=== PATIENT | male | born 1955 | race Caucasian/White ===

== ENCOUNTER → 2023-06-02 10:13 | Outpatient (CLI) | payer MEDICARE, OTHER, SELFPAY ==
--- NOTE | 2023-06-02 10:17 | DI.RAD.S_ITS ---
PROCEDURE: XR LUMBAR SPINE MIN 4V INDICATIONS: BACK PAIN TECHNIQUE: 5 views of the lumbar spine were acquired, including bilateral oblique views. COMPARISON: None. FINDINGS: Bones: Bilateral hip arthroplasty. L1 wedge-shaped compression fracture noted, uncertain age. Disc space narrowing hypertrophic facet joints noted in the mid to lower lumbar spine. Oblique images are unremarkable. Soft tissues: Overlying bowel gas pattern is normal. No suspicious soft tissue calcifications. Oblique images: No pars defects. IMPRESSION: L1 compression fracture, uncertain age Approved by: Frank Maldonado M.D. on 06/02/2023 at 10:12
== END ==
PROVIDERS: Referring Provider Physical Medicine & Rehabilitation; Visit Provider Physical Medicine & Rehabilitation
DX: M54.9 Dorsalgia, unspecified (principal); M48.56XA Collapsed vertebra, not elsewhere classified, lumbar region, initial encounter for fracture
CPT/HCPCS: 72110

== ENCOUNTER → 2023-06-18 09:03 | Outpatient (CLI) | payer MEDICARE, OTHER, SELFPAY ==
--- NOTE | 2023-06-18 09:08 | DI.MRI.S_ITS ---
PROCEDURE: MR LUMBAR SPINE WO CON INDICATIONS: progressive axial low back pain TECHNIQUE: Noncontrast sagittal T1 spin echo and T2 fast echo, sagittal STIR, and T2 fast spin echo through the lumbar spine. In cases with scoliosis, additional coronal T2 fast spin echo may be performed. COMPARISON: [facility], CR, XR LUMBAR SPINE MIN 4V, 06/02/2023, 10:25. FINDINGS: Image quality: Excellent. Alignment and Curvature: Grade 1 retrolisthesis of L1 on L2, L2 on L3. Bone Marrow: Marrow is of normal overall signal. No acute vertebral body compression fractures. Chronic compression deformity of the L1 vertebral body, without endplate retropulsion. Spinal Cord: Conus medullaris terminates at the L1-2 level. Visualized cord demonstrates normal signal and size. Paraspinous Soft Tissues: No paravertebral masses. T12-L1: Moderate disc height loss. Broad-based disc bulge. Ligamentum flavum hypertrophy. Mild spinal canal narrowing. Mild neural foraminal narrowing. L1-L2: Moderate disc height loss. Broad-based disc bulge. Ligamentum flavum hypertrophy, epidural lipomatosis and facet hypertrophy causing severe spinal canal narrowing. [id number] bilateral neural foraminal narrowing. L2-L3: Moderate disc height loss. Broad-based disc bulge. Ligamentum flavum hypertrophy, epidural lipomatosis and facet hypertrophy causing severe spinal canal narrowing. Mild right and moderate left neural foraminal narrowing. L3-L4: Broad-based disc bulge, moderate disc height loss, epidural lipomatosis and facet hypertrophy causing severe spinal canal narrowing. Moderate to severe bilateral neural foraminal narrowing. L4-L5: Epidural lipomatosis, ligamentum flavum hypertrophy, facet hypertrophy and broad-based disc bulge causing severe spinal canal narrowing. Severe bilateral neural foraminal narrowing. L5-S1: Broad-based disc bulge, facet hypertrophy and arthrosis causing moderate spinal canal narrowing. Severe bilateral neural foraminal narrowing. IMPRESSION: Multilevel degenerative disc disease, facet arthrosis, ligamentum flavum hypertrophy and epidural lipomatosis, resulting in severe spinal canal narrowing at L1 through L5. Multilevel neural foraminal narrowing, severe at L5-S1 and L4-5. Variable at other levels. Chronic L1 compression deformity. Dictated by: Baldomero Wayne M.D. on 06/18/2023 at 14:33 Approved by: Baldomero Wayne M.D. on 06/18/2023 at 14:40
== END ==
PROVIDERS: PCP Nurse Practitioner Family; Referring Provider Physical Medicine & Rehabilitation; Visit Provider Physical Medicine & Rehabilitation
DX: M47.816 Spondylosis without myelopathy or radiculopathy, lumbar region (principal); M47.817 Spondylosis without myelopathy or radiculopathy, lumbosacral region; M51.36 Other intervertebral disc degeneration, lumbar region; M51.37 Other intervertebral disc degeneration, lumbosacral region; M48.061 Spinal stenosis, lumbar region without neurogenic claudication; M48.07 Spinal stenosis, lumbosacral region; M43.8X6 Other specified deforming dorsopathies, lumbar region
CPT/HCPCS: 72148

== ENCOUNTER 2023-10-16 08:13 | Outpatient (CLI) | payer MEDICARE, OTHER, SELFPAY ==
[2023-10-16] VITALS (8 sets, daily range): BP systolic 123–173; BP diastolic 69–93; PULSE 72–81; RESP 13–20; TEMP 36.1; O2SAT 94–100
--- NOTE | 2023-10-16 08:45 | DI.RAD.S_ITS ---
PROCEDURE: PAIN L/S FACET INJ/BLK 1ST ARY INDICATIONS: FACET ARTHROPATHY COMPARISON: None. FINDINGS: Fluoroscopic spot filming was performed to verify placement of spinal needles at the right C4, C5, and C6 level(s), as labeled on the films. Appropriate location(s) of the needle tip(s) was confirmed by injection of iodinated contrast. IMPRESSION: Fluoroscopically guided facet injection of the cervical spine. Dictated by: Janey Dsouza M.D. on 10/16/2023 at 11:22 Approved by: Janey Dsouza M.D. on 10/16/2023 at 11:23
[2023-10-16] MEDS: MIDAZOLAM 2 MG/2 ML VIAL IV (09:34)
[2023-10-16] MEDS: BUPIVACAINE 0.5% (PF) 10 ML VIAL 5 ML INJ (09:38)
[2023-10-16] MEDS: LIDOCAINE 1% 20 ML 5 ML INJ (09:38)
[2023-10-16] MEDS: iopamidoL 15 ML VIAL 3 ML INJ (09:38)
--- NOTE | 2023-10-16 09:52 | PM.PROC.IR.1 ---
Date/Time/Diagnoses Date of procedure: 10/16/23 Time of procedure: 09:52 Pre-procedure diagnosis: FACET ARTHROPATHY Post-procedure diagnosis: same Procedure Notes Procedure: 1. BILATERAL L3, L4 AND L5 DIAGNOSTIC MB BLOCKS Indications: Jessica is referred by RAMIREZ Perez for treatment of Bilateral Axial LBP. Physician: Frandy Carlson Total Fluoroscopy time (seconds): 15 Total sedation minutes: 15 Complications: none Procedure in detail & Post-procedure care: DESCRIPTION OF PROCEDURE Fluoroscopically guided, contrast-controlled bilateral L3, L4 AND L5 medial branch blocks with 0.5cc of 0.5% Marcaine. Following review of allergy and review of potential side effects and complications, including, but not necessarily limited to, infection, allergic reaction, local tissue breakdown, nerve injury, paralysis, stroke and possible , the patient indicated that the patient understood and agreed to proceed. An informed consent document was signed by the patient, witnessed by a nurse, and placed in the patient's chart. After review of previous anaesthesic history and IV conscious sedation the patient was deemed safe to proceed with today's procedure with IV conscious sedation as ASA class II designation. Safety time-out was performed to confirm patient ID, procedure to be performed and site of procedure. IV sedation was accomplished with a combination of 2mg of Versed was administered by the RN after DO order, titrated to patient comfort during the course of the procedure while the patient remained responsive to all verbal commands In the prone position, following sterile prep and drape of the lumbar region, the right L3, L4 AND L5 anatomical location of the medial branch of the dorsal ramus was identified fluoroscopically. Subsequently an anesthetic skin wheal using 1% lidocaine solution was initiated at each of the anatomical spots. Subsequently then a 22-gauge 3.5-inch spinal needle was atraumatically introduced and advanced under fluoroscopic guidance at each of the corresponding sites at the right L3, L4 and L5 MB. After negative aspiration, 0.2cc of Isovue 200 was injected, confirming placement without vascular or intrathecal uptake. Subsequently then 0.5cc of 0.5% Marcaine solution was injected at each of the corresponding sites at the right L3, L4 and L5 medial branch locations. The identical procedure was replicated on the left. The patient tolerated the procedure well without signs or symptoms of complications. The patient tolerated the procedure well without signs or symptoms of complications prior to transfer to the recovery area continued monitoring without incident. Post-procedure, the patient was monitored initiating provocative activities to measure the amount of relief from block of the facetogenic pain. The patient reported a VAS of 7 prior to the procedure and a post-procedure VAS of 1. It has been a pleasure to assist in the diagnostic and therapeutic care of your patient. POST OP INSTRUCTIONS The patient was provided with a Pain Log to complete over the next several hours and subsequent days prior to the patient's follow up with the ordering physician. If the patient has wind science and planning relief to the solution applied, then they may be a candidate for medial branch rhizotomy. The patient is aware, was provided, once again, with a Pain Log and will follow up with the referring physician for review and clinical correlation
--- NOTE | 2023-10-16 09:59 | DI.RAD.S_ITS ---
PROCEDURE: XR KNEE LT 3V INDICATIONS: left knee pain s/p TKA TECHNIQUE: 3 views of the knee were acquired. COMPARISON: None. FINDINGS: Bones: Left total knee arthroplasty is intact. No suspicious bony lesions. No acute fracture or dislocation. Soft tissues: No joint effusion. No suspicious soft tissue calcifications. IMPRESSION: No acute bony abnormality or significant effusion. Dictated by: Janey Dsouza M.D. on 10/16/2023 at 12:19 Approved by: Janey Dsouza M.D. on 10/16/2023 at 12:24
== END 2023-10-16 10:12 | disposition home or self-care (01) ==
LOC: RAD 08:14
PROVIDERS: PCP Nurse Practitioner Family; Referring Provider Physical Medicine & Rehabilitation; Visit Provider Physical Medicine & Rehabilitation
DX: M47.816 Spondylosis without myelopathy or radiculopathy, lumbar region (principal); T84.033A Mechanical loosening of internal left knee prosthetic joint, initial encounter
CPT/HCPCS: 64493; 64494; 73562; 99152; J2250

== ENCOUNTER 2023-12-20 09:38 | Outpatient (CLI) | payer MEDICARE, OTHER, SELFPAY ==
[2023-12-20] VITALS (7 sets, daily range): BP systolic 158–198; BP diastolic 89–99; PULSE 75–86; RESP 16–25; TEMP 36.8; O2SAT 95–100
--- NOTE | 2023-12-20 10:15 | DI.RAD.S_ITS ---
PROCEDURE: PAIN L/S FACET INJ/BLK 1ST ARY INDICATIONS: Bilateral L3-L4 and L5 medial branch block SA COMPARISON: [facility], XA, PAIN L/S FACET INJ/BLK 1ST ARY, 10/16/2023, 10:37. FINDINGS: Fluoroscopic spot filming was performed to verify placement of spinal needles at the bilateral L3, L4, L5 level(s), as labeled on the films. Appropriate location(s) of the needle tip(s) was confirmed by injection of iodinated contrast. IMPRESSION: Intraoperative guidance provided. Dictated by: Rayo Patiño M.D. on 12/20/2023 at 12:44 Approved by: Rayo Patiño M.D. on 12/20/2023 at 12:45
[2023-12-20] MEDS: MIDAZOLAM 2 MG/2 ML VIAL IV (10:57)
[2023-12-20] MEDS: LIDOCAINE 1% 20 ML 5 ML INJ (10:59)
[2023-12-20] MEDS: iopamidoL 15 ML VIAL 3 ML INJ (10:59)
[2023-12-20] MEDS: LIDOCAINE 2% INJ SDV 5ML 5 ML INJ ×2 (11:00→11:06)
--- NOTE | 2023-12-20 11:13 | P.PCN_ITS ---
Date/Time/Diagnoses Date of procedure: 12/20/23 Time of procedure: 11:13 Pre-procedure diagnosis: 1. FACET ARTHROPATHY Post-procedure diagnosis: same Procedure Notes Procedure: 1. BILATERAL L3, L4 AND L5 DIAGNOSTIC MB BLOCKS Indications: Jessica is referred by RAMIREZ Perez for treatment of Bilateral Axial LBP. Physician: Frandy Carlson Total Fluoroscopy time (seconds): 9 Total sedation minutes: 10 Complications: none Procedure in detail & Post-procedure care: DESCRIPTION OF PROCEDURE Fluoroscopically guided, contrast-controlled bilateral L3, L4 AND L5 medial branch blocks with 0.5cc of 2% Lidocaine. Following review of allergy and review of potential side effects and complications, including, but not necessarily limited to, infection, allergic reaction, local tissue breakdown, nerve injury, paralysis, stroke and possible , the patient indicated that the patient understood and agreed to proceed. An informed consent document was signed by the patient, witnessed by a nurse, and placed in the patient's chart. After review of previous anaesthesic history and IV conscious sedation the patient was deemed safe to proceed with today's procedure with IV conscious sedation as ASA class II designation. Safety time-out was performed to confirm patient ID, procedure to be performed and site of procedure. IV sedation was accomplished with a combination of 2mg of Versed was administered by the RN after DO order, titrated to patient comfort during the course of the procedure while the patient remained responsive to all verbal commands In the prone position, following sterile prep and drape of the lumbar region, the right L3, L4 AND L5 anatomical location of the medial branch of the dorsal ramus was identified fluoroscopically. Subsequently an anesthetic skin wheal using 1% lidocaine solution was initiated at each of the anatomical spots. Subsequently then a 22-gauge 3.5-inch spinal needle was atraumatically introduced and advanced under fluoroscopic guidance at each of the corresponding sites at the right L3, L4 and L5 MB. After negative aspiration, 0.2cc of Isovue 200 was injected, confirming placement without vascular or intrathecal uptake. Subsequently then 0.5cc of 2% Lidocaine solution was injected at each of the corresponding sites at the right L3, L4 and L5 medial branch locations. The identical procedure was replicated on the left. The patient tolerated the procedure well without signs or symptoms of complications. The patient tolerated the procedure well without signs or symptoms of complications prior to transfer to the recovery area continued monitoring without incident. Post-procedure, the patient was monitored initiating provocative activities to measure the amount of relief from block of the facetogenic pain. The patient reported a VAS of 7 prior to the procedure and a post-procedure VAS of 1. It has been a pleasure to assist in the diagnostic and therapeutic care of your patient. POST OP INSTRUCTIONS The patient was provided with a Pain Log to complete over the next several hours and subsequent days prior to the patient's follow up with the ordering physician. If the patient has brazer induction relief to the solution applied, then they may be a candidate for medial branch rhizotomy. The patient is aware, was provided, once again, with a Pain Log and will follow up with the referring physician for review and clinical correlation
== END 2023-12-20 11:20 | disposition home or self-care (01) ==
PROVIDERS: PCP Nurse Practitioner Family; Referring Provider Physical Medicine & Rehabilitation; Visit Provider Physical Medicine & Rehabilitation
DX: M47.816 Spondylosis without myelopathy or radiculopathy, lumbar region (principal)
CPT/HCPCS: 64493; 64494; 99152; J2250

== ENCOUNTER 2024-02-12 10:20 | Outpatient (CLI) | payer MEDICARE, OTHER, SELFPAY ==
[2024-02-12] VITALS (12 sets, daily range): BP systolic 117–188; BP diastolic 71–88; PULSE 70–83; RESP 16–21; TEMP 36.4; O2SAT 97–100
--- NOTE | 2024-02-12 11:00 | DI.RAD.S_ITS ---
PROCEDURE: PAIN L/S MED/LAT N RFA BILAT INDICATIONS: Bilateral L3-L4 and L5 medial branch RFA COMPARISON: None. FINDINGS: Fluoroscopic spot filming was performed to verify placement of spinal needles at the L3 through L5 level(s), as labeled on the films. Appropriate location(s) of the needle tip(s) was confirmed by injection of iodinated contrast. IMPRESSION: Contrast and needle placement overlying L3 through L5. Dictated by: Becca Rosas M.D. on 02/12/2024 at 15:03 Approved by: Becca Rosas M.D. on 02/12/2024 at 15:14
[2024-02-12] MEDS: MIDAZOLAM 2 MG/2 ML VIAL IV (11:06)
[2024-02-12] MEDS: LIDOCAINE 1% 20 ML 5 ML INJ (11:22)
[2024-02-12] MEDS: BUPIVACAINE 0.5% (PF) 10 ML VIAL 5 ML INJ (11:22)
--- NOTE | 2024-02-12 12:02 | P.PCN_ITS ---
Date/Time/Diagnoses Date of procedure: 02/12/24 Time of procedure: 12:03 Pre-procedure diagnosis: 1. RECALCITRANT FACET ARTHROPATHY Post-procedure diagnosis: same Procedure Notes Procedure: 1. BILATERAL L3, L4 AND L5 MEDIAL BRANCH RADIOFREQUENCY NEUROTOMY Indications: Jessica is referred by RAMIREZ Perez for treatment of facet arthropathy. Physician: Frandy Carlson Total Fluoroscopy time (seconds): 22 Total sedation minutes: 39 Complications: none Procedure in detail & Post-procedure care: DESCRIPTION OF PROCEDURE Bilateral L3, L4 and L5 medial branch radiofrequency neurotomy The patient is well known to this clinic having undergone previous facet injections with good but temporary relief. The patient has experienced appropriate, concordant relief with previous facet and median branch blocks but the patient's pain has been recalcitrant to further conservative measures. Therefore, based upon the patient's relief and persistent symptoms, the patient is considered an appropriate candidate for facet rhizotomy. All of the patient's questions regarding the risks versus benefits of the procedure, including, but not limited to, bleeding, infection, temporary as well as lasting nerve injury, paralysis, stroke, and , as well treatment alternatives were answered to satisfaction. After obtaining informed consent, denial of pertinent drug allergies, as well as being made aware of the potential risks of bleeding, infection, spinal cord trauma, paralysis, temporary and permanent nerve damage, seizure, stroke, and possible , the patient was brought to the fluoroscopy suite and positioned prone on the fluoroscopy table. After review of previous anaesthesic history and IV conscious sedation the patient was deemed safe to proceed with today's procedure with IV conscious sedation as ASA class II designation. Safety time-out was performed to confirm patient ID, procedure to be performed and site of procedure. IV sedation was accomplished with a combination of 3mg of Versed administered by the RN after DO order, titrated to patient comfort during the course of the procedure while the patient remained responsive to all verbal commands. The lumbar region was prepped in usual sterile fashion and covered with a fenestrated drape in the usual sterile fashion. Appropriate monitors applied including pulse oximeter, pulse, and blood pressure for regular monitoring th roughout the procedure. After local infiltration using 1% lidocaine, under fluoroscopic guidance, a 10- cm RF insulated needle with a 10-mm active tip was positioned parallel to the junction of the right the superior articulating process where the L5 medial branch resides. Needle placement was confirmed with motor stimulation of .5v on the right which produced local stimulation without radicular component. The stimulation was then increased to 2v with, once again, only local multifidus stimulation without radicular component. The needle was then removed and the identical procedure was performed along the length of the right L4 medial branch with motor stimulation at .7v on the right. The identical procedure was once again performed along the length of the right L3 and medial branch with motor stimulation of .5v on the right. The medial branches were then anesthetised with 0.5% marcaine. This was then followed by two discreet lesions performed at 80 degrees Celsius for 90 seconds each. The identical procedures were repeated on the left. The patient tolerated the procedure well without signs or symptoms of complications prior to transfer to the recovery area continued monitoring without incident. The patient was then transferred to the recovery area where they were observed for an appropriate period of time after the injection. The patient reported a VAS score of 8 prior to the procedure and a post-procedure VAS of 0. POST OP INSTRUCTIONS The patient was provided a Pain Log to continue to record the patient's response to the target-specific procedure prior to the patient's follow-up visit with the referring physician. Additionally, specific post-injection care instructions and a contact number to our office were provided if concerns arise regarding possible complications associated with the procedure are suspected.
--- NOTE | 2024-02-12 13:00 | PC.NURSE ---
Left middle injection site noted to have Sanguineous drainage leak through band aid and onto shirt. band aid changed, no noted active drainage when band aid was off. New band aid placed with a 2x2 gauze and coversite. Patient instructed to monitor. made aware.
== END 2024-02-12 12:08 | disposition home or self-care (01) ==
PROVIDERS: PCP Nurse Practitioner Family; Referring Provider Physical Medicine & Rehabilitation; Visit Provider Physical Medicine & Rehabilitation
DX: M47.816 Spondylosis without myelopathy or radiculopathy, lumbar region (principal)
CPT/HCPCS: 64635; 64636; 99152; 99153; J2250

== ENCOUNTER 2024-10-30 14:37 | Outpatient (CLI) | payer MEDICARE, OTHER, SELFPAY ==
[2024-10-30] VITALS (8 sets, daily range): BP systolic 142–171; BP diastolic 71–94; PULSE 75–94; RESP 14–17; TEMP 36.8; O2SAT 96–100
[2024-10-30] MEDS: MIDAZOLAM 5 MG/5 ML VIAL IV (16:27)
[2024-10-30] MEDS: BUPIVACAINE 0.25% (PF) VIAL 2 ML INJ (16:31)
[2024-10-30] MEDS: BETAMETHASONE 30 MG/5 ML MDV 12 MG INJ (16:32)
[2024-10-30] MEDS: iopamidoL 15 ML VIAL 3 ML INJ (16:33)
[2024-10-30] MEDS: DEXAMETHASONE 10 MG/ML VIAL INJ (16:33)
--- NOTE | 2024-10-30 16:41 | P.PCN_ITS ---
Date/Time/Diagnoses Date of procedure: 10/30/24 Time of procedure: 16:41 Pre-procedure diagnosis: 1. HNP WITH RADICULAR FEATURES, 2. MULTILEVEL CENTRAL STENOSIS, Post-procedure diagnosis: same Procedure Notes Procedure: 1. FLUOROSCOPICALLY GUIDED CONTRAST CONTROLLED INTERLAMINAR EPIDURAL STEROID INJECTION -L4/5 Indications: Jessica is referred by RAMIREZ Perez for treatment of Bilateral Foraminal Stenosis R>L LE symptoms. Physician: Frandy Carlson Total Fluoroscopy time (seconds): 6 Total sedation minutes: 10 Complications: none Procedure in detail & Post-procedure care: FINDINGS Multilevel Central Spinal Stenosis with Nerve Root Compression DESCRIPTION OF PROCEDURE Fluoroscopically guided, contrast-controlled L4/5 translaminar epidural steroid injection. Following review of allergy and review of potential side effects and complications, including, but not necessarily limited to, infection, allergic reaction, local tissue breakdown, temporary as well as permanent nerve injury, paralysis, stroke and possible , the patient indicated that the patient understood and agreed to proceed. An informed consent document was signed by the patient, witnessed by a nurse, and placed in the patient's chart. Additionally, other treatment options including modalities, medications, and physical therapy were reviewed with the patient. After review of previous anaesthesic history and IV conscious sedation the patient was deemed safe to proceed with today?s procedure with IV conscious sedation as ASA class II designation. Safety time-out was performed to confirm patient ID, procedure to be performed and site of procedure. IV sedation was accomplished with a combination of 2mg of Versed was administered by the RN after DO order, titrated to patient comfort during the course of the procedure while the patient remained responsive to all verbal commands In the prone position, following sterile prep and drape of the lumbar region, the L4/5 translaminar space was identified fluoroscopically. The skin was anesthetized via a 25-gauge, 1.5inch needle with 1% lidocaine solution. At this point, a 22-gauge short bevel spinal needle was atraumatically introduced and advanced under fluoroscopic guidance into the region of the L4/5 translaminar space. Depth was confirmed on lateral view. Radiological data, including multiple fluoroscopic views of the lumbar spine, reveal a spinal needle at the L4/5 translaminar space. Lateral views then show placement of the needle in the epidural space. Subsequent views show contrast material flowing superiorly and inferiorly in the epidural space. No vascular or intrathecal uptake is observed. At this point, using loss of resistance technique with saline and air, the epidural space was entered. This was confirmed following negative aspiration with injection of approximately 1.5cc of Isovue 200, showing excellent epidural flow without vascular or intrathecal uptake. At this point, 1cc of 1% lidocaine solution combined with 2cc or 10mg of dexamethasone and 6mg betamethasone was injected without incident. The patient tolerated the procedure well without signs or symptoms of complications prior to transfer to the recovery area continued monitoring without incident. The patient was then transferred to the recovery area where they were observed for an appropriate period of time after the injection. The patient reported a VAS score of 7 prior to the procedure and a post- procedure VAS of 1. POST OP INSTRUCTIONS The patient was provided a Pain Log to continue to record their response to the target-specific procedure prior to follow-up visit with their referring physician. Additionally, specific post-injection care instructions and a contact number to our office were provided if concerns arise regarding possible complications associated with the procedure are suspected.
== END 2024-10-30 15:01 | disposition home or self-care (01) ==
LOC: RAD 14:38
PROVIDERS: PCP Nurse Practitioner Family; Referring Provider Physical Medicine & Rehabilitation; Visit Provider Physical Medicine & Rehabilitation
DX: M51.16 Intervertebral disc disorders with radiculopathy, lumbar region (principal); M48.061 Spinal stenosis, lumbar region without neurogenic claudication
CPT/HCPCS: 62323; 99152; J0702; J1100; J2250; J3490